=== PATIENT | male | born 1950 | race Caucasian/White ===

== ENCOUNTER 2017-02-10 01:50 | Emergency (ER) | payer OTHER, MEDICAID ==
[~2017-02-10] VITALS: Ht 167.6 cm; Wt 71.7 kg
[2017-02-10 01:50] VITALS: BP 148/81; PULSE 80; RESP 18; TEMP 98.1; O2SAT 99
--- NOTE | 2017-02-10 01:50 | NUR ---
Patient to ER bed 7 to gown for evaluation. Side rails up. Report given to RAKESH MARTINEZ.
--- NOTE | 2017-02-10 02:01 | NUR ---
Patient to ER post fall in the shower. Superficial abrasion horizontal to left side of forehead. AAo-x, unlabored breathng no signs of acute distress
--- NOTE | 2017-02-10 02:16 | NUR ---
ER MD Bolton at bedside for evaluation
[2017-02-10] MEDS ORDERED: LIDOCAINE 4% TOPICAL 50 ML BOTTLE MM ONE (02:30)
--- NOTE | 2017-02-10 02:45 | NUR ---
Wound cleaned w NS and iodine. Iuodoform applied to site.
--- NOTE | 2017-02-10 03:12 | NUR ---
Patient's guardian given written and verbal discharge instructions and verbalizes understanding. ER MD Bolton discussed with patient's guardian the results and treatment provided. Patient in stable condition. ID arm band removed. Patient's guardian educated on pain management, fever management, and to follow up with primary physician. Pain Scale/FLACC 0/10. Opportunity for questions provided and answered.
== END 2017-02-10 03:12 | disposition home or self-care (01) ==
LOC: SED 01:50
DX: S01.81XA Laceration without foreign body of other part of head, initial encounter (principal); G80.9 Cerebral palsy, unspecified; K21.9 Gastro-esophageal reflux disease without esophagitis; E03.9 Hypothyroidism, unspecified; W01.198A Fall on same level from slipping, tripping and stumbling with subsequent striking against other object, initial encounter; Y93.89 Activity, other specified; Y92.89 Other specified places as the place of occurrence of the external cause; Y99.8 Other external cause status
CPT/HCPCS: 99283

== ENCOUNTER 2017-10-04 14:55 | Emergency (ER) | payer OTHER, MEDICAID ==
[~2017-10-04] VITALS: Ht 149.9 cm; Wt 54.4 kg
[2017-10-04 15:00] VITALS: BP_SYST 150
[2017-10-04] MEDS ORDERED: ALEN10TA6 PO (16:02)
[2017-10-04] MEDS ORDERED: PHEN60TA11 PO (16:15)
[2017-10-04] MEDS ORDERED: MULT-1117 (16:15)
[2017-10-04] MEDS ORDERED: OMEP40CA33 PO (16:15)
[2017-10-04] MEDS ORDERED: LEVO50TA77 PO (16:15)
[2017-10-04] MEDS ORDERED: BACL10TA PO (16:15)
[2017-10-04] MEDS ORDERED: CALC-226 PO (16:15)
[2017-10-04] MEDS ORDERED: FOLI-43 PO (16:15)
[2017-10-04] MEDS ORDERED: CRAN450C PO (16:15)
[2017-10-04] MEDS ORDERED: VITD400 PO (16:15)
[2017-10-04] MEDS ORDERED: MAGN400T10 PO (16:15)
[2017-10-04] MEDS ORDERED: LISI-209 PO (16:15)
[2017-10-04] MEDS ORDERED: ASPI-1063 PO (16:15)
[2017-10-04 16:30] LABS: BASOPHILS # (AUTO) 0.1 K/uL (0.0-0.2); BASOPHILS % (AUTO) 0.8 % (0.0-2.0); EOSINOPHILS # (AUTO) 0.2 K/uL (0.0-0.4); HEMATOCRIT 49.1 % (36-54); HEMOGLOBIN 15.9 g/dL (14.0-18.0); LYMPHOCYTES # (AUTO) 2.2 K/uL (1.0-5.5); LYMPHOCYTES % (AUTO) 25.4 % (20.5-51.5); MEAN CORPUSCULAR HEMOGLOBIN 33 pg (27-31); MEAN CORPUSCULAR HGB CONC 33 % (32-36); MEAN CORPUSCULAR VOLUME 100 fL (79.0-98.0); MONOCYTES # (AUTO) 0.7 K/uL (0.0-1.0); MONOCYTES % (AUTO) 8.6 % (1.7-9.3); NEUTROPHILS # (AUTO) 5.5 K/uL (1.8-7.7); NEUTROPHILS % (AUTO) 63.2 % (40.0-70.0); PLATELET COUNT (AUTO) 386 K/uL (130-430); RED BLOOD CELL COUNT(AUTO) 4.89 MIL/uL (4.2-6.2); RED CELL DISTRIBUTION WIDTH 12.3 % (9.0-15.0); WHITE BLOOD COUNT (AUTO) 8.7 K/uL (4.8-10.8)
[2017-10-04 16:52] LABS: ALBUMIN 4.5 g/dL (3.4-4.8); CALCIUM 9.6 mg/dL (8.4-11.0); CREATININE 0.72 mg/dL (0.55-1.30); POTASSIUM 4.5 mmol/L (3.5-5.1); TOTAL BILIRUBIN 0.3 mg/dL (0.0-1.0)
[2017-10-04 20:30] VITALS: BP_SYST 147
[2017-10-04 21:43] LABS: PHENOBARBITAL 39.7 ug/mL (15.0-40.0)
== END 2017-10-04 20:30 | disposition home or self-care (01) ==
LOC: SED 14:55
DX: G40.409 Other generalized epilepsy and epileptic syndromes, not intractable, without status epilepticus (principal); G80.9 Cerebral palsy, unspecified; Z79.899 Other long term (current) drug therapy; Z99.3 Dependence on wheelchair
CPT/HCPCS: 36415; 70450-TC; 80053; 80184-TC; 83605; 84484; 85025; 87040-TC; 93005; 99285